=== PATIENT | female | born 1995 | race Two or more races ===

== ENCOUNTER 2023-12-19 00:26 | Emergency (ER) | payer OTHER ==
[~2023-12-19] VITALS: Ht 157.5 cm; Wt 52.0 kg
[2023-12-19 00:36] VITALS: BP 110/60; PULSE 80; RESP 18; TEMP 98.4; O2SAT 100
[2023-12-19] MEDS ORDERED: ONDANSETRON HCL 4MG/2ML INJ IV ONE (01:00)
[2023-12-19] MEDS ORDERED: SODIUM CHLORIDE 0.9% 1,000 ML IV ONE (01:00)
[2023-12-19] MEDS ORDERED: FAMOTIDINE 20MG/2ML VIAL IV ONE (01:00)
[2023-12-19] MEDS ORDERED: ONDANSETRON HCL 4MG/2ML INJ IV NR (01:15)
[2023-12-19] MEDS ORDERED: FAMOTIDINE 20MG/2ML VIAL IV NR (01:15)
== END 2023-12-19 01:28 | disposition home or self-care (01) ==
LOC: ER 00:26
DX: F10.129 Alcohol abuse with intoxication, unspecified (principal); Y90.9 Presence of alcohol in blood, level not specified
CPT/HCPCS: 99283; J7030